=== PATIENT | male | born 1995 | race Caucasian/White ===

== ENCOUNTER 2017-12-02 11:32 | Emergency (ER) | payer OTHER ==
[~2017-12-02 11:32] MED LIST: IBUP-1687 PO
[2017-12-02] MEDS ORDERED: NS(*) 0.9% 1000 ML BAG 1,000 ML IV ONE ×2 (11:37→15:15)
[2017-12-02] MEDS ORDERED: ONDANSETRON 4 MG/2 ML VIAL IVP ONE (11:40)
[2017-12-02] MEDS ORDERED: fentaNYL CITR 100 MCG/2 ML AMP IVP ONE ×2 (11:40→13:35)
--- NOTE | 2017-12-02 11:40 | ER Report ---
History and Physical Time Seen By MD: 11:39 Hx. 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 pain swelling right ankle Allergies: Coded Allergies: No Known Drug Allergies (Unverified , 12/02/17) Home Meds Active Scripts Cephalexin 500 Mg Tab (KEFLEX 500 MG TAB) 500 Mg Tablet, 500 MG PO Q6H, #28 TAB Prov:JANIA JUSTIN 12/02/17 Hydrocodone Bit/Acetaminophen (NORCO 5-325 TABLET) 1 Each Tablet, 1 EACH PO Q4- 6H Y for PAIN, #30 TAB Prov:JANIA JUSTIN 12/02/17 Reported Medications Ibuprofen (ADVIL) 200 Mg Tablet, 3 TAB PO Q6-8H 12/24/15 Past Medical/Surgical History Peritonsillar abscess Reviewed Nurses Notes: Yes Old Medical Records Reviewed: Yes Hx Smoking: No Smoking Status: Never Smoker Hx Substance Use Disorder: No Family History of: HTN Constitutional Vital Sign - Last 24 Hours 12/02/17 12/02/17 12/02/17 12/02/17 11:35 11:36 12:00 12:02 Temp 97.6 Pulse 89 83 Resp 24 B/P (MAP) 153/91 153/91 (111) 158/98 (118) Pulse Ox 99 98 O2 Delivery Room Air 12/02/17 12/02/17 12/02/17 12/02/17 12:30 12:32 13:00 13:02 Pulse 84 84 B/P (MAP) 145/70 (95) 142/83 (102) Pulse Ox 96 97 12/02/17 12/02/17 12/02/17 12/02/17 13:07 13:12 13:17 13:22 Pulse 80 84 92 101 Pulse Ox 97 98 97 97 12/02/17 12/02/17 12/02/17 12/02/17 13:27 13:30 13:32 13:37 Pulse 94 88 85 B/P (MAP) 131/80 (97) Pulse Ox 96 95 98 12/02/17 12/02/17 12/02/17 12/02/17 13:42 13:47 13:52 13:57 Pulse 89 94 98 101 Pulse Ox 97 98 99 98 12/02/17 12/02/17 12/02/17 12/02/17 14:00 14:02 14:05 14:07 Pulse ??? 111 Resp 20 B/P (MAP) 158/74 (102) 137/72 (93) Pulse Ox 99 99 12/02/17 12/02/17 12/02/17 12/02/17 14:10 14:12 14:15 14:17 Pulse 122 134 Resp 16 14 B/P (MAP) 149/86 (107) 154/86 (108) Pulse Ox 99 98 12/02/17 12/02/17 12/02/17 12/02/17 14:20 14:22 14:27 14:30 Pulse 137 127 Resp 11 23 B/P (MAP) 164/86 (112) 157/83 (107) Pulse Ox 99 99 12/02/17 12/02/17 12/02/17 12/02/17 14:35 14:40 14:45 14:50 B/P (MAP) 153/100 (117) 142/107 (119) 153/111 (125) 158/85 (109) 12/02/17 12/02/17 12/02/17 12/02/17 14:55 14:57 15:00 15:23 Pulse 105 Resp 19 B/P (MAP) 140/95 (110) 135/94 (108) 140/92 (108) Pulse Ox 99 12/02/17 12/02/17 15:27 15:57 Pulse 87 95 Pulse Ox 95 95 Intake and Output 12/02/17 12/02/17 12/03/17 15:00 23:00 07:00 Intake Total 1000 ml Balance 1000 ml Physical Exam 22 year old male alert and oriented gcs 15, lori head normocephalic and atraumatic, neck supple no pain, chest wall intact, and soft bs x 4 quadrants, pelvis intact, swelling right ankle abrasion to lateral aspect do not see open area full peripheral pulses bilaterally Medical Decision Making ED Course/Re-evaluation Clinical Indication for ER IV: Hydration ED Course CAT scan is done I did talk to Dr. Branch and Dr. Bueno that this they see some small air bubbles concerns about open fracture he does have an abrasion to his lateral ankle we did examine this well with only did the reduction did not see an open area that opened to the bone with CT findings we'll cover him with Iv Ancef in the emergency room send him home on Keflex 4 times a day he was going to see Dr. Bueno in clinic on Re-evaluation Discussed the patient with Dr. Branch he was in the surgery he did review the films he asked us to reduce the fracture and to have him see Dr. Sesay in office either tomorrow or depending on availability Procedure Conscious sedation done with patient according to protocol patient was on monitor with entitle CO2 oxygen at 2 L respiratory therapy nursing staff in the room he did get 2 mg of Versed IV 1 mg at a time also ketamine 70 mg with repeat 70 mg fracture reduced did put a posterior and sugar tong splint on the extremity had good pulses good CMS after manipulation post reduction films done Decision to Disposition Date: December 02, 2017 Decision to Disposition Time: 16:48 Depart Departure Latest Vital Signs Vital Signs Date Time Temp Pulse Resp B/P (MAP) Pulse Ox O2 Delivery O2 Flow Rate FiO2 12/02/17 15:57 95 95 12/02/17 15:23 140/92 (108) 12/02/17 14:57 19 12/02/17 11:35 97.6 Room Air Impression: Primary Impression: Talar fracture Additional Impressions: Closed avulsion fracture of medial malleolus Closed avulsion fracture of lateral malleolus Condition: Improved Disposition: HOME OR SELF-CARE Referrals: BRIANNA HAMMOND DO (PCP) [facility] 2 Days New Scripts Cephalexin 500 Mg Tab (KEFLEX 500 MG TAB) 500 Mg Tablet 500 MG PO Q6H, #28 TAB Prov: JANIA JUSTIN 12/02/17 Hydrocodone Bit/Acetaminophen (NORCO 5-325 TABLET) 1 Each Tablet 1 EACH PO Q4-6H Y for PAIN, #30 TAB Prov: JANIA JUSTIN 12/02/17 Patient Instructions: Ankle Fracture (ED) Additional Instructions: Elevate the foot on 4 pillows, ice 20 minutes 4 times a day , return to the emergency room for increased pain numbness of ankle , see orthopedic physician dr bueno on at 1240 in their office, Keflex 500 mg 4 times a day 1 week Problem Qualifiers JANIA JUSTIN December 02, 2017 11:40
--- NOTE | 2017-12-02 13:00 | RADIOLOGY IMAGING REPORT ---
FACILITY: [facility] PATIENT NAME: Jairon Thomas : 1995 MR: [id number] V: [id number] EXAM DATE: ORDERING PHYSICIAN: JANIA JUSTIN TECHNOLOGIST: Location: [facility] [place] Patient: Jairon Thomas : 1995 Visit/Account:[id number] Date of Sevice: 12/02/2017 INDICATION: fell off roof landed on feet. DATE: 12/02/2017 12:53 PM. TECHNIQUE: ANKLE 3 VIEW MIN RIGHT COMPARISON: No comparison would load into PACS. FINDINGS: Fractures of the lateral malleolus, medial malleolus, and anterior tibial plafond are displaced. Epifanio tionally, there is a fracture to the trigonal process of the talus. Soft tissue edema is extensive. T he tibial plafond is translated laterally on the talar dome. IMPRESSION: Lateral malleolar, medial malleolar, and anterior tibial plafond fractures. Talar trigonal process fr acture. Report Dictated By: Ernesto Diana MD at 12/02/2017 12:53 PM Report E-Signed By: Ernesto Diana MD at 12/02/2017 12:55 PM WSN:[id number]
[2017-12-02] MEDS ORDERED: KETAMINE HCL 200 MG/20 ML MDV IVP ONE (13:50)
[2017-12-02] MEDS ORDERED: MIDAZOLAM 1 MG/1 ML 10 ML IVP ONE (13:50)
[2017-12-02] MEDS ORDERED: MIDAZOLAM 10 MG/2 ML VIAL IVP ONE (14:00)
[2017-12-02] MEDS ORDERED: MIDAZOLAM 2 MG/2 ML VIAL IVP ONE (14:00)
[2017-12-02] MEDS ORDERED: KETAMINE HCL 500 MG/5 ML VIAL IM ONE (14:15)
[2017-12-02] MEDS ORDERED: HYDR-4309 PO (14:37)
--- NOTE | 2017-12-02 14:50 | RADIOLOGY IMAGING REPORT ---
FACILITY: [facility] PATIENT NAME: Jairon Thomas : 1995 MR: [id number] V: [id number] EXAM DATE: ORDERING PHYSICIAN: JANIA JUSTIN TECHNOLOGIST: Location: [facility] [place] Patient: Jairon Thomas : 1995 Visit/Account:[id number] Date of Sevice: 12/02/2017 INDICATION: post reduction. Evaluate alignment after splint placement. DATE: 12/02/2017 2:43 PM. TECHNIQUE: ANKLE 2 VIEW RIGHT COMPARISON: Prereduction radiographs. FINDINGS: Redemonstrated are the lateral collateral, medial malleolar, anterior tibial, and talar fractures. Th e talar fracture is better defined and involves the medial margin of the talar dome as well as the tr igonal process. There continues to be medial offset of the tibial plafond and with marked widening of the joint space on the lateral side. Alignment of the fibula has improved, but the distal fibular fr agment remains displaced as do the medial malleolar fragment and anterior tibial fragment. IMPRESSION: 1. Persistent displacement as above. 2. Better defined talar fracture involves the medial aspect of the talar dome as well as the trigonal process. Report Dictated By: Ernesto Diana MD at 12/02/2017 2:43 PM Report E-Signed By: Ernesto Diana MD at 12/02/2017 2:46 PM WSN:[id number]
[2017-12-02] MEDS ORDERED: KETAMINE HCL 500 MG/5 ML VIAL IVP ONE ×2 (15:15)
[2017-12-02 15:23] VITALS: BP 140/92
--- NOTE | 2017-12-02 15:51 | RADIOLOGY IMAGING REPORT ---
FACILITY: [facility] PATIENT NAME: Jairon Thomas : 1995 MR: [id number] V: [id number] EXAM DATE: ORDERING PHYSICIAN: JANIA JUSTIN TECHNOLOGIST: Location: [facility] - [place] Patient: Jairon Thomas : 1995 Visit/Account:[id number] Date of Sevice: 12/02/2017 INDICATION: fell from roof. DATE: 12/02/2017 3:41 PM. TECHNIQUE: ANKLE RIGHT W/O CONTRAST. Noncontrast axial CT imaging was performed through the right ank le with sagittal and coronal reformats. One of the following dose optimization techniques was utilize d in the performance of this exam: Automated exposure control; adjustment of the mA and/or kV accordi ng to the patient's size; or use of an iterative reconstruction technique. Specific details can be referenced in the facility's radiology CT exam operational policy. COMPARISON: Radiographs of the same day. FINDINGS: Oblique fracture through the lateral malleolus extends to the level of the mortise, and the distal fibular fragment is displaced laterally. Comminuted fracture extends obliquely deep to the medial malleolus, and the medial malleolar fragment is displaced medially. A vertically oriented fracture of the distal tibia is comminuted, and the distal tibia is markedly bateman bluxed posteriorly. A fracture through the trigonal process of the talus extends anteriorly to involve both the posterior subtalar joint and the posterior margin of the talar dome. The posterior talar dome is depressed cheikh roximately 2 mm. There is no other fracture or dislocation. Soft tissues are markedly swollen circumferentially at the ankle. The few tiny gas bubbles about the fractures suggest a possible open fracture, but the exact site is indeterminate. IMPRESSION: 1. Medial malleolar, lateral malleolar, anterior tibial, and talar fractures as above. 2. The tibia is severely subluxed posteriorly on the talar dome. Report Dictated By: Ernesto Diana MD at 12/02/2017 3:41 PM Report E-Signed By: Ernesto Diana MD at 12/02/2017 3:48 PM WSN:[id number]
[2017-12-02] MEDS ORDERED: CEPH500T7 PO (16:05)
[2017-12-02] MEDS ORDERED: ceFAZolin 1 GM VIAL IVP ONE (16:05)
== END 2017-12-02 16:44 | disposition home or self-care (01) ==
LOC: ER 11:34
DX: S82.844A Nondisplaced bimalleolar fracture of right lower leg, initial encounter for closed fracture (principal); W13.2XXA Fall from, out of or through roof, initial encounter; Y99.0 Civilian activity done for income or pay; S92.101A Unspecified fracture of right talus, initial encounter for closed fracture
CPT/HCPCS: 27810; 73600; 73610; 73700; 96361; 96374; 96375; 96376; 99152; 99285; J0690; J2250; J2405; J3010; J3490; J7030

== ENCOUNTER 2017-12-10 12:13 | Emergency (ER) | payer OTHER ==
[~2017-12-10 12:13] MED LIST changes: +CEPH500T7 PO; +HYDR-4309 PO
[2017-12-10] MEDS ORDERED: HYDR-385 PO (12:24)
[2017-12-10] MEDS ORDERED: ROPIVACAINE (12:24)
--- NOTE | 2017-12-10 12:24 | ER Report ---
History and Physical Time Seen By MD: 12:23 Hx. of Stated Complaint: pt reports severe postop pain HPI/ROS CHIEF COMPLAINT: Right ankle postop pain HISTORY OF PRESENT ILLNESS: 22-year-old male who fell off a roof and had surgery 2 days prior to presentation with a complete pin placement and internal fixation of his right ankle has been taking hydrocodone for his pain called his surgeon who told him to come to the emergency room for an IM Toradol shot to help for some breakthrough pain he has no other complaints other than ankle discomfort REVIEW OF SYSTEMS: Respiratory: No cough, no dyspnea. Cardiovascular: No chest pain, no palpitations. Gastrointestinal: No vomiting, no abdominal pain. Musculoskeletal: ankle pain Remainder of the 14 system rev: Yes Allergies: Coded Allergies: No Known Drug Allergies (Unverified , 12/02/17) Home Meds Active Scripts Cephalexin 500 Mg Tab (KEFLEX 500 MG TAB) 500 Mg Tablet, 500 MG PO Q6H, #28 TAB Prov:JANIA JUSTIN APRN-Wen 12/02/17 Hydrocodone Bit/Acetaminophen (NORCO 5-325 TABLET) 1 Each Tablet, 1 EACH PO Q4- 6H Y for PAIN, #30 TAB Prov:JNAIA JUSTIN APRN-C 12/02/17 Reported Medications [ropivacaine pump] No Conflict Check 12/10/17 Hydrocodone Bit/Acetaminophen (HYDROCODON-ACETAMINOPHEN 5-325) 1 Each Tablet, 1 EACH PO Q4H, TAB 12/10/17 Ibuprofen (ADVIL) 200 Mg Tablet, 3 TAB PO Q6-8H 12/24/15 Reviewed Nurses Notes: Yes Old Medical Records Reviewed: Yes Hx Smoking: No Smoking Status: Never Smoker Hx Substance Use Disorder: No Hx Alcohol Use: Yes (OCC) Constitutional Vital Sign - Last 24 Hours 12/10/17 12:20 Temp 98.2 Pulse 135 Resp 22 B/P (MAP) 170/116 Pulse Ox 99 O2 Delivery Room Air Physical Exam General Appearance: [The patient is alert, has no immediate need for airway protection and no current signs of toxicity.] [ ] Eyes: Pupils equal and round no injection. Respiratory: Chest is non tender, lungs are clear to auscultation. Cardiac: regular rate and rhythm [ ] Gastrointestinal: Abdomen is soft and non tender, no masses, bowel sounds normal. Musculoskeletal: Right ankle examination patient in full dressing spoke to orthopedics we will assess neurovascular which she is fully intact Neck is supple and non tender. Extremities have full range of motion and are non tender. Skin: No rashes or lesions. [ ] DIFFERENTIAL DIAGNOSIS: After history and physical exam differential diagnosis was considered for breakthrough pain management for a post surgical right ankle Medical Decision Making ED Course/Re-evaluation ED Course ED clinical course 22-year-old male evaluated status post P Anayeli fracture of the right ankle reduction and internal fixation performed 2 days prior to presentation neurovascularly intact dose of 60 mg Toradol given a patient will follow up with his orthopedic doctor scheduled Decision to Disposition Date: December 10, 2017 Decision to Disposition Time: 12:30 Depart Departure Latest Vital Signs Vital Signs Date Time Temp Pulse Resp B/P (MAP) Pulse Ox O2 Delivery O2 Flow Rate FiO2 12/10/17 12:20 98.2 135 22 170/116 99 Room Air Impression: Primary Impression: Ankle pain Condition: Improved Disposition: HOME OR SELF-CARE Referrals: BRIANNA HAMMOND DO (PCP) 5 Days Patient Instructions: Ankle Fracture (DC) DELROY REYES MD December 10, 2017 12:24
[2017-12-10] MEDS ORDERED: KETOROLAC 60 MG/2 ML VIAL IM ONE (12:25)
[2017-12-10 12:36] VITALS: BP 128/82
== END 2017-12-10 12:40 | disposition home or self-care (01) ==
LOC: ER 12:21
DX: G89.18 Other acute postprocedural pain (principal); M25.571 Pain in right ankle and joints of right foot
CPT/HCPCS: 96372; 99282; J1885